=== PATIENT | male | born 1980 | race Caucasian/White ===

== ENCOUNTER 2021-04-07 16:50 | Emergency (ER) | payer SELFPAY ==
[~2021-04-07] VITALS: Ht 185.4 cm; Wt 117.9 kg
[2021-04-07 16:51] VITALS: BP 141/84
== END 2021-04-07 19:51 | disposition left against medical advice (07) ==
LOC: ER 16:50
DX: H57.12 Ocular pain, left eye (principal); Z53.21 Procedure and treatment not carried out due to patient leaving prior to being seen by health care provider